=== PATIENT | female | born 1985 | race Caucasian/White ===

== ENCOUNTER 2018-11-10 11:36 | Emergency (ER) | payer BC ==
[2018-11-10 12:12] LABS: #Basophils 0.1 thou/uL (0.0-0.2); #Eosinphils 0.1 thou/uL (0.0-0.7); #Lymphocytes 1.9 thou/uL (1.20-3.40); #Monocytes 0.4 thou/uL (0.11-0.59); #Neutrophils 3.8 thou/uL (1.40-6.50); %Basophils 0.8 % (0.0-1.0); %Lymphocytes 31.2 % (21.0-51.0); %Monocytes 6.6 % (0.0-10.0); %Neutrophils 60.4 % (42.0-75.0); Hemoglobin 13.5 g/dL (12.0-16.0); Mean Corpuscular HGB CONC 32.3 g/dL (32.0-36.0); Mean Corpuscular Hemoglobin 28.9 pg (27.0-31.0); Mean Corpuscular Volume 89.4 fL (78.0-98.0); Mean Platelet Volume 8.2 fL (7.4-10.4); Platelet Count 218 thou/uL (130-400); Red Blood Cell (RBC) Count 4.68 mill/uL (4.20-5.40); White Blood Cell (WBC) Count 6.2 thou/uL (4.8-10.8)
[2018-11-10 12:31] LABS: ALT (SGPT) 11 U/L (8-55); AST (SGOT) 12 U/L (5-34); Albumin 4.4 g/dL (3.5-5.0); Alkaline Phosphatase 56 U/L (40-150); Anion Gap 12 mmol/L (10-20); BUN (Urea Nitrogen) 15 mg/dL (7.0-18.7); Bilirubin, Total 1.2 mg/dL (0.2-1.2); Calc. Creatinine Clearance 0 mL/min (70-130); Calcium 9.3 mg/dL (7.8-10.44); Carbon Dioxide 25 mmol/L (22-29); Chloride 106 mmol/L (98-107); Estimated GFR-MDRD 80; Globulin 2.5 g/dL (2.4-3.5); Glucose 112 mg/dL (70-105); Lipase 25 U/L (8-78); Potassium 4.2 mmol/L (3.5-5.1); Protein, Total 6.9 g/dL (6.0-8.3); Sodium 139 mmol/L (136-145)
[2018-11-10 12:51] LABS: Bilirubin Negative (Negative); Blood, Urine Large (Negative); Clarity CLEAR (Clear); Glucose, Urine (Dipstick) Negative (Negative); Leukocyte Negative (Negative); Nitrite Negative (Negative); Protein, Urine (Dipstick) Trace mg/dL (Neg-Trace); Specific Gravity, Urine 1.012 (1.002-1.036); Urobilinogen 0.2 mg/dL (0.2-1.0); pH, Urine 6.5 (5.0-9.0)
[2018-11-10 12:52] LABS: Pregnancy Test - Urine (BHCG) Negative (Negative); Pregu Control Background? CLEAR/WHITE (CLR/WHITE); Pregu Control Bar Appear? YES (CONTROL BAR); Specific Gravity 1.012 (1.002-1.036)
[2018-11-10 12:53] LABS: Bacteria/HPF None Seen HPF (None Seen); Hyaline Casts/LPF 4-6 HYALINE CAST LPF (0-3 Hyaline); Pathc Cast-AUWi Flag 0.81 (0-2.49)
--- NOTE | 2018-11-10 14:24 | ULT ---
TRANSABDOMINAL AND TRANSVAGINAL PELVIC ULTRASOUND: Date: 11/10/18 INDICATION: History of right lower quadrant abdominal pain and prolonged menstruation. TECHNIQUE: Skinner scale, color Doppler, and spectral Doppler images were obtained of the pelvis via a transabdomin al and transvaginal approach. Comparison made with prior exam dated 07/24/11. FINDINGS: Uterus measures 6.4 x 3.4 x 4.7 cm. Endometrial stripe measures 3.5 mm. Right ovary measures 2.9 x 2.6 x 1.9 cm. There is normal flow in the right ovary. Left ovary measures 4.4 x 4.3 x 3.3 cm. There is a 3.1 cm complex cyst within the left ovary. There are multiple loops peristalsing in the pelvis, slightly limiting exam. IMPRESSION: 1. Complex cyst within the left ovary measuring up to 3.1 cm. This may reflect a hemorrhagic cyst. R ecommend a follow-up examination in 6-8 weeks to document resolution. 2. Visualized uterus and right adnexa appear within normal limits. POS: JOSE LUIS
== END 2018-11-10 14:52 | disposition home or self-care (01) ==
LOC: ERS 11:36
DX: N83.202 Unspecified ovarian cyst, left side (principal); F32.9 Major depressive disorder, single episode, unspecified
CPT/HCPCS: 36415; 76856; 80053; 81003; 81015; 81025; 83690; 85025